=== PATIENT | male | born 1985 | race Caucasian/White ===

== ENCOUNTER → 2016-12-24 | Outpatient (CLI) | payer BC ==
[2015-08-21 15:00] VITALS: BP 90/62
[~2016-12-24] MED LIST: BACL20TA PO; BUPR150T15 PO; CETI10TA22 PO; DICY20TA30 PO; DOCU-109 PO; DULO30CA2 PO; ERGO500027 PO; FLUO40CA9 PO; GUAI-40 PO; HYDR-2679 PO; LISI1TAB5 PO; LISI1TAB7 PO; LORA-434 PO; LORA0.5T96 PO; LORA10TA68 PO; MELO15TA23 PO; METO25TA9 PO; MONT10TA9 PO; NORFLEX; NORT10CA PO; NORT50CA PO; OMEP20CA5 PO; OMEP40CA5 PO; OXYC10TA PO; OXYC20TA34 PO; OXYC30TA64 PO; PROAIR HFA8.5 GM IH; TRAZ100T12 PO; VITAMIN B 6 PO
--- NOTE | 2016-12-24 11:02 | RAD ---
MR LUMBAR SPINE HISTORY: LBP WITH WORSENING LEFT LEG RADICULOPATHY X 2 MONTHS, HX OF 2 DISCECTOMY, PRIOR XRAYS Technique: Sagittal T2, sagittal STIR, and sagittal T1-weighted images were obtained. Additional axial T1 and T2 weighted imaging was also performed. FINDINGS: There is no compression fracture or deformity. Bone marrow signal is normal. Conus terminates normally at the level of L1. Alignment and curvature is normal. There is disc height loss at L5-S1 with reactive endplate edema at this level. Also, there is a left eccentric disc protrusion which causes mild mass effect upon the descending left S1 nerve and mild narrowing of the left foramen. There are postoperative changes of a left hemilaminectomy at this level as well. Visualized intra-abdominal contents are within normal limits. IMPRESSION: Postop changes of a left hemilaminectomy at L5-S1. There is a left eccentric disc protrusion which abuts the descending S1 nerve root and exiting left L5 nerve without high-grade mass effect upon them. Correlate for possible left S1 or L5 radiculopathy. There is also degenerative endplate edema at L5-S1 from degenerative disc disease. Electronically signed by: Jatinder Peters MD (12/24/2016 10:58 AM) [place] [id number]
== END | disposition home or self-care (01) ==
LOC: MRI 09:10
PROVIDERS: ATTEND Physician Assistant Surgical
DX: M54.16 Radiculopathy, lumbar region (principal); M51.37 Other intervertebral disc degeneration, lumbosacral region; R60.9 Edema, unspecified
CPT/HCPCS: 72148

== ENCOUNTER → 2017-09-23 | Outpatient (CLI) | payer BC | END | disposition home or self-care (01) | LOC: MRI 07:41 | DX: M48.02 Spinal stenosis, cervical region (principal) | CPT/HCPCS: 72141 ==